=== PATIENT | female | born 1995 | race Caucasian/White ===

== ENCOUNTER 2025-01-18 01:10 | Emergency (ER) | payer OTHER, SELFPAY ==
--- NOTE | ~2025-01-18 | XR_ITS ---
Supine and upright views of the abdomen Clinical history: Constipation Findings: Bowel gas pattern is nonspecific. There is prominent stool in the left colon and sigmoid co juan. IUD present. No evidence for obstruction or free air. No abnormal mass lesion or calcification i s seen. Osseous structures are intact. Impression: Prominent stool in the left colon and sigmoid colon, compatible constipation. IUD in place. Reviewed, dictated and finalized at location . Impression: Prominent stool in the left colon and sigmoid colon, compatible constipation. IUD in place.
[2025-01-18 01:15] VITALS: BP 132/97; PULSE 78; RESP 18; TEMP 36.3; O2SAT 99
--- NOTE | 2025-01-18 04:00 | PC.NURSE ---
rhettp maxi at bedside for assessment.
--- NOTE | 2025-01-18 04:08 | PC.NURSE ---
edp for rectal exam at bedside
--- NOTE | 2025-01-18 04:49 | ED.GENADULT ---
HPI - General Adult General Chief complaint: Unspecified Stated complaint: Constipation, rectal pain Time Seen by Provider: 01/18/25 03:58 History of Present Illness HPI narrative: Patient 29-year-old female who presents emergency department chief complaint of constipation rectal pain. And patient reports that she had some diarrhea about a week ago took Imodium patient reports he has not had a bowel movement approximately 7 days patient states showed little small pellets that she has been able to get out but not a good bowel movement. Patient denies abdominal pain reports she feels as though there is a large amount of stool in her rectum Related Data Allergies Allergy/AdvReac Type Severity Reaction Status Date / Time No Known Allergies Allergy Verified 01/18/25 01:11 Review of Systems Review of Systems: A 10 system review of systems was completed on the patient and is negative except for what is stated in the HPI. Nursing and ancillary documentation was reviewed. Exam Narrative: GENERAL: Well-appearing, well-nourished, and in no acute distress. HEAD: Normocephalic, atraumatic. EYES: PERRLA and EOMI. ENT: Nares clear, no rhinorrhea or epistaxis. Mucous membranes moist. NECK: Supple. CHEST: Clear to auscultation. No respiratory distress. HEART: Regular rate and rhythm. No murmur heard. Normal peripheral pulses. ABDOMEN: Soft, nontender, nondistended, normal active bowel sounds. : Rectal exam showed a large amount of hard stool in the rectal vault EXTREMITIES: Normal range of motion. No edema. SKIN: Warm, dry, no rash. NEURO: No focal deficits. Alert and oriented x3. PSYCH: Normal mood and affect. Course Vital Signs Vital signs: Vital Signs Temperature 36.3 C L 01/18/25 01:15 Pulse Rate 78 01/18/25 01:15 Respiratory Rate 18 01/18/25 01:15 Blood Pressure 132/97 H 01/18/25 01:15 Pulse Oximetry 99 01/18/25 01:15 Oxygen Delivery Room Air 01/18/25 01:15 Temperature 36.3 C L 01/18/25 01:15 Pulse Rate 78 01/18/25 01:15 Respiratory Rate 18 01/18/25 01:15 Blood Pressure 132/97 H 01/18/25 01:15 Pulse Oximetry 99 01/18/25 01:15 Oxygen Delivery Room Air 01/18/25 01:15 Medical Decision Making MDM Narrative Medical decision making narrative: Differential diagnosis includes fecal impaction, constipation Rectal exam showed a large amount of stool in the rectal vault. An enema was ordered for the patient Vital Signs Vital Signs: Vital Signs Temperature 36.3 C L 01/18/25 01:15 Pulse Rate 78 01/18/25 01:15 Respiratory Rate 18 01/18/25 01:15 Blood Pressure 132/97 H 01/18/25 01:15 Pulse Oximetry 99 01/18/25 01:15 Oxygen Delivery Room Air 01/18/25 01:15 Temperature 36.3 C L 01/18/25 01:15 Pulse Rate 78 01/18/25 01:15 Respiratory Rate 18 01/18/25 01:15 Blood Pressure 132/97 H 01/18/25 01:15 Pulse Oximetry 99 01/18/25 01:15 Oxygen Delivery Room Air 01/18/25 01:15 Discharge Plan Discharge Clinical Impression: Constipation Patient Disposition: Home Condition: Stable Instructions: Antibiotic Form, Constipation (ED) Patient Language: [place] Prescriptions: New polyethylene glycol 3350 [Miralax] 17 gram powder in packet 17 g PO DAILY 5 Days Qty: 14 0RF Follow-up/Referrals: PHYSICIAN NOT ON STAFF,NONSTAFF [Primary Care Provider] - Time of Disposition: 06:08
[2025-01-18 07:24] VITALS: BP 117/65; PULSE 76; RESP 16; TEMP 36.8; O2SAT 98
== END 2025-01-18 07:25 | disposition home or self-care (01) ==
PROVIDERS: Emergency Provider Emergency Medicine
DX: K59.00 Constipation, unspecified (principal)
CPT/HCPCS: 74018; 99283